=== PATIENT | female | born 2000 | race Caucasian/White ===

== ENCOUNTER 2021-11-19 20:53 | Emergency (ER) | payer MEDICAID ==
[~2021-11-19] VITALS: Ht 162.6 cm; Wt 50.2 kg
[2021-11-19 21:02] VITALS: BP 113/63
[2021-11-19 23:12] LABS: BASOPHILS % 0.5 % (0.0-2.0); EOSINOPHILS % 1.7 % (0.0-5.0); HEMATOCRIT. 33.3 % (36.0-48.0); HEMOGLOBIN. 11.3 g/dL (12.0-16.0); LYMPHOCYTES % 17.2 % (20.0-50.0); MEAN CORPUSCULAR HEMOGLOBIN 32.2 pg (28.0-32.0); MEAN PLATELET VOLUME 8.5 fl (7.4-10.4); MONOCYTES % 9.4 % (2.0-8.0); NEUTROPHILS % 71.2 % (40.0-76.0); PLATELET 271 x1000/uL (130-400); RED BLOOD CELL COUNT 3.51 mill/uL (4.2-5.4); RED CELL DISTRIBUTION WIDTH 13.4 % (11.6-14.6)
[2021-11-19 23:18] LABS: CHLORIDE 105 mEq/L (98-107)
[2021-11-19 23:41] LABS: B-HCG QUANTITATIVE 141736 mIU/mL (<3)
== END 2021-11-20 02:51 | disposition home or self-care (01) ==
LOC: ER 20:53
DX: O21.8 Other vomiting complicating pregnancy (principal); R53.1 Weakness; R55 Syncope and collapse; Z3A.10 10 weeks gestation of pregnancy
CPT/HCPCS: 36415; 76801; 80053; 81025; 84702; 85025; 86850; 86900; 99284